=== PATIENT | female | born 1995 | race African-American/Black ===

== ENCOUNTER 2024-09-09 13:07 | Emergency (ER) | payer OTHER, SELFPAY ==
--- NOTE | 2024-09-09 13:10 | ED.BACK ---
HPI - Back Pain/Injury General Chief Complaint: Urogenital-Female Stated Complaint: Lower Back Pain Time Seen by Provider: 09/09/24 13:10 Source: patient Mode of arrival: ambulatory Limitations: no limitations History of Present Illness HPI Narrative: Gisel is a 28-year-old female patient presenting to the clinic today with complaints of low back pain x1 week. Rates pain 5/10 when it is occurring. Is unable to describe a quality of pain. Denies having pain currently. Has taken azo which has helped her symptoms. She denies any burning, frequency, or urgency with urination. Last menstrual period was 2 months ago. Is sexually active and has irregular menses. No concern for STIs. Denies any vaginal discharge or odor. States she works as an [employer] and has to lift patients but does not recall injuring her back. Pain is worse with movement or lying down. No saddle anesthesia or loss of bowel or bladder. No difficulty walking. Last bowel movement Related Data Allergies Allergy/AdvReac Type Severity Reaction Status Date / Time No Known Allergies Allergy Verified 09/09/24 13:35 Review of Systems Review of Systems: Pertinent positives per HPI. Patient denies any fever, chills, rash, headache, visual changes, dizziness, cough, runny nose, sore throat, shortness of breath, chest pain, palpitations, nausea, vomiting, diarrhea, constipation, abdominal pain, or any urinary issues. PMFSH Comments At the time of my signature, I reviewed and agree with the nursing past medical, surgical, social, and family history. There is no relevant family history pertinent to the patient complaint. Exam Narrative: General: Well-developed, morbidly obese, in no apparent distress. Head: Normocephalic, atraumatic. Cardio: Regular rate and rhythm, s1 and s2 normal, no murmur appreciated. Resp: Clear to auscultation bilaterally, no rhonchi, rales, wheezing or rubs. Abdomen: Soft, pliable, bowel sounds present in all quadrants, non-tender to palpation, no organomegly, no CVAT tenderness. Musculoskeletal: No deformity, non-tender to palpation, grossly normal range of motion, muscle strength strong and equal in BLE. SLT negative, patellar reflexes 2/4 bilaterally, negative foot drop, normal gait and station Course Course Emergency Course: Portions of this record may have been created with voice recognition software. Level of Care: Express Care Visit Vital Signs Vital signs: Vital Signs Temperature 36.3 C L 09/09/24 13:11 Pulse Rate 93 09/09/24 13:11 Respiratory Rate 16 09/09/24 13:11 Blood Pressure 134/88 09/09/24 13:11 Pulse Oximetry 99 09/09/24 13:11 Oxygen Delivery Room Air 09/09/24 13:11 Temperature 36.3 C L 09/09/24 13:11 Pulse Rate 93 09/09/24 13:11 Respiratory Rate 16 09/09/24 13:11 Blood Pressure 134/88 09/09/24 13:11 Pulse Oximetry 99 09/09/24 13:11 Oxygen Delivery Room Air 09/09/24 13:11 Vital signs reviewed MDM - Back Pain/Injury MDM Narrative Medical decision making narrative: At the time of visit patient is resting comfortably on the exam table. Patient appears to be nontoxic. Patient is morbidly obese. On exam back is nontender to palpation and she is not having any pain with movement of her lower extremities. Muscles are strong and she has full range of motion. Has a steady gait. No saddle anesthesia or loss of bowel or bladder. Report low back pain without urinary symptoms however she is stating that azo was helping her symptoms. Last dose of azo was yesterday. Urine dip was collected and ordered. She denies any concern for STIs, vaginal discharge, or odor. No known injury to her back. No history of DDD or spinal abnormalities Labs: Urinalysis positive for 3+ leukocytes, urine culture was ordered Plan: I suspect patient has UTI. Will place patient on 5 day course of Bactrim DS. Urine culture was sent. Work note was given for today. Other options for pain treatment given to the patient-Tylenol, Motrin, lidocaine patch, continue azo, Aspercreme, or blue emu cream.. Supportive measures were discussed with the patient and they voiced understanding discharge instructions and agrees to treatment plan. Return precautions reviewed Differential Diagnosis Differential diagnosis: Likely lumbar radiculopathy, sciatica, strain of lumbar region, renal colic, pyelonephritis and other (UTI, STI, bacterial vaginosis, herniated disc) Lab Data Labs: Lab Results 09/09/24 Range/Units 13:32 POC Urine Color Yellow POC Urine Clarity Cloudy POC Urine pH 5.5 POC Ur Specif Crawford 1.010 POC Urine Protein Negative (Negative) POC Ur Glucose (UA) Negative (Negative) POC Urine Ketones Negative (Negative) POC Urine Blood Negative (Negative) POC Urine Nitrite Negative (Negative) POC Urine Bilirubin Negative (Negative) POC Urine Urobilinogen 0.2 POC U Leukocyte Esteras 3+ (Negative) POC Urine HCG, Qual Negative (Negative) Discharge Plan Discharge Clinical Impression: UTI (urinary tract infection) Qualifiers: Urinary tract infection type: acute cystitis Hematuria presence: without hematuria Qualified Code(s): N30.00 - Acute cystitis without hematuria Low back pain Qualifiers: Chronicity: acute Back pain laterality: midline Sciatica presence: without sciatica Qualified Code(s): M54.50 - Low back pain, unspecified Patient Disposition: Home Condition: Stable Instructions: Antibiotic Form, Urinary Tract Infection in Women (ED), Acute Low Back Pain (ED) Additional Instructions: Take Bactrim as prescribed Urine positive for 3+ leukocytes. We will send urine for culture Increase fluids and stay well hydrated Wipe front to back. May use wet wipes. Avoid tub baths If sexually active- pee before and after intercourse. Wear cotton panties Avoid tight clothing up against the genitals Follow up with your PCP in 1 week if symptoms persist. Patient Language: [place] Prescriptions: New sulfamethoxazole-trimethoprim [Bactrim DS] 800-160 mg tablet 1 tablet PO Q12H 5 Days Qty: 10 0RF Follow-up/Referrals: UNKNOWN,DOCTOR [Non-Staff] - Stand Alone Forms: Work/School Release IP Time of Disposition: 13:38 Quality NIHSS Nursing Documentation ED NIHSS nursing documentation: reviewed/agree
[2024-09-09 13:11] VITALS: BP 134/88; PULSE 93; RESP 16; TEMP 36.3; O2SAT 99
[2024-09-09 13:39] LABS: BEDSIDEPREGUCG Negative (Negative); EDUAAPPEAR Cloudy; EDUABILI Negative (Negative); EDUABLOOD Negative (Negative); EDUACOLOR1 Yellow; EDUAGLUCOSE Negative (Negative); EDUAKETONE Negative (Negative); EDUALEUKO 3+ (Negative); EDUANITRATE Negative (Negative); EDUAPH 5.5; EDUAPROTEIN Negative (Negative); EDUASPGRAVITY 1.010; EDUAUROBILI 0.2
== END 2024-09-09 13:43 | disposition home or self-care (01) ==
PROVIDERS: Emergency Provider Nurse Practitioner Family
DX: N30.00 Acute cystitis without hematuria (principal); M54.50 Low back pain, unspecified
CPT/HCPCS: 81003; 81025; 87086; 99203; G0463